=== PATIENT | female | born 1990 | race African-American/Black ===

== ENCOUNTER 2017-11-24 17:22 | Emergency (ER) | payer OTHER, SELFPAY ==
[2017-11-24] MEDS: BENZONATATE 100 MG CAP PO ×2 (21:00)
[2017-11-24] MEDS: guaiFENesin ER 600 MG TAB PO ×2 (21:00)
== END 2017-11-24 21:19 | disposition home or self-care (01) ==
LOC: M ED 17:22
DX: J18.9 Pneumonia, unspecified organism (principal); M79.7 Fibromyalgia; G43.909 Migraine, unspecified, not intractable, without status migrainosus
CPT/HCPCS: 71046

== ENCOUNTER 2018-02-05 16:20 | Emergency (ER) | payer OTHER, SELFPAY ==
[2018-02-05] MEDS: KETOROLAC 30 MG/ML VIAL (J1885) IV (17:46)
[2018-02-05] MEDS: NS 500 ML IV (17:46)
[2018-02-05] MEDS: METOCLOPRAMIDE INJ 10MG/2ML VIAL (J2765) IV (17:46)
[2018-02-05] MEDS: diphenhydrAMINE INJ 50MG/ML VIAL (J1200) IV (17:46)
== END 2018-02-05 18:42 | disposition home or self-care (01) ==
LOC: M ED 16:20
DX: G43.909 Migraine, unspecified, not intractable, without status migrainosus (principal); M79.7 Fibromyalgia; F43.10 Post-traumatic stress disorder, unspecified; D55.0 Anemia due to glucose-6-phosphate dehydrogenase [G6PD] deficiency
CPT/HCPCS: J1200